=== PATIENT | female | born 1990 | race Two or more races ===

== ENCOUNTER 2023-10-23 12:10 | Day surgery (SDC) | payer OTHER ==
[2023-10-23 12:03] LABS: HEMATOCRIT 33.6 % (32.4-45.2); HEMOGLOBIN 11.4 GM/dL (10.7-15.3); MCH 30.8 pg (25.7-33.7); MCHC 33.9 g/dl (32.0-36.0); MEAN CELL VOLUME 90.9 fl (80-96); MEAN PLT VOLUME 8.5 fl (7.5-11.1); PLATELET COUNT 168 10^3/uL (134-434); RDW 14.2 % (11.6-15.6); WHITE BLOOD COUNT 3.6 K/mm3 (4.0-10.0)
[2023-10-23 12:04] LABS: INR 1.05 (0.83-1.09); PROTHROMBIN TIME (PATIENT) 12.2 SEC (9.7-13.0)
[2023-10-23 12:22] LABS: POTASSIUM 4.3 mmol/L (3.5-5.1)
[2023-10-23 12:24] LABS: ALBUMIN 3.7 g/dl (3.4-5.0); BLOOD UREA NITROGEN 10.1 mg/dL (7-18); CALCIUM 8.7 mg/dL (8.5-10.1)
[2023-10-23 12:27] LABS: CREATININE 0.6 mg/dL (0.55-1.3)
[2023-10-23 12:29] LABS: BILIRUBIN,TOTAL 0.2 mg/dL (0.2-1)
[2023-10-23 14:28] VITALS: BMI 26.4
[2023-10-23] MEDS ORDERED: PROMETHAZINE HCL 25 MG/1 ML VIAL IVPB PRN (15:35)
[2023-10-23] MEDS ORDERED: oxyCODONE HCL 5 MG TABLET PO PRN (15:35)
[2023-10-23] MEDS ORDERED: ONDANSETRON 4 MG/2 ML VIAL IVPUSH PRN (15:35)
[2023-10-23] MEDS ORDERED: LACTATED RINGERS SOLUTION 1,000 ML IV SCH (15:45)
[2023-10-23] MEDS ORDERED: PROPOFOL 20 ML ONE (15:52)
[2023-10-23] MEDS ORDERED: MIDAZOLAM HCL 2 MG/2 ML SINGLE DOSE VIAL ONE (15:52)
[2023-10-23] MEDS ORDERED: LIDOCAINE HCL/PF 2% SDV 5ML VIAL ONE (15:53)
[2023-10-23] MEDS ORDERED: ceFAZolin SODIUM 1 GM VIAL ONE (16:03)
[2023-10-23] MEDS ORDERED: SODIUM CHLORIDE 0.9% P/F 10 ML VIAL IJ ONE (16:03)
[2023-10-23] MEDS ORDERED: DEXAMETHASONE SOD PHOSPHATE 4 MG/1 ML VIAL ONE (16:04)
[2023-10-23] MEDS ORDERED: ONDANSETRON 4 MG/2 ML VIAL ONE (16:04)
[2023-10-23] MEDS: ceFAZolin SODIUM 1 GM VIAL IVPB ONE (16:08)
[2023-10-23] MEDS ORDERED: KETOROLAC TROMETHAMINE 30 MG/1 ML VIAL ONE (16:15)
[2023-10-23] MEDS ORDERED: OXYTOCIN 10 UNITS/ML VIAL ONE (16:19)
[2023-10-23] MEDS ORDERED: ACETAMINOPHEN 325 MG TABLET (FP) PO PRN (16:41)
[2023-10-23] MEDS ORDERED: IBUPROFEN 400 MG TABLET (FP) PO PRN (16:41)
[2023-10-23] MEDS: RHO(D) IMMUNE GLOBULIN 1,500 UNIT DISP.SYRIN IM ONE (17:21)
[2023-10-23 19:19] VITALS: RESP 16
[2023-10-23 19:46] VITALS: BP 100/65; PULSE 66; TEMP 98.8
== END 2023-10-23 19:50 | disposition home or self-care (01) ==
LOC: JASU-SURG 12:10
PROVIDERS: ATTEND Specialist
PROC: 10D17ZZ Extraction of Products of Conception, Retained, Via Natural or Artificial Opening (ICD-10-PCS; principal; 2023-10-23 15:00)
DX: O02.1 Missed abortion (principal); Z3A.10 10 weeks gestation of pregnancy
CPT/HCPCS: 36415; 80053; 85027; 85610; 85730; 86850; 86900; 86901; 88305-TC; 94760; 96372; J2790

== ENCOUNTER 2025-01-15 05:35 | Inpatient (IN) | payer OTHER ==
[2025-01-15] MEDS: ELECTROLYTE-148 SOLN 500 ML IV SCH (06:00)
[2025-01-15 06:09] VITALS: BMI 31.5
[2025-01-15] MEDS: ELECTROLYTE-148 SOLN 1,000 ML IV SCH (06:30)
[2025-01-15] MEDS: CITRIC ACID/SODIUM CITRATE 30 ML UNIT-DOSE CUP PO ONE (07:10)
[2025-01-15] MEDS ORDERED: FENTANYL CITRATE/PF 50 MCG/ML VIAL ONE (08:31)
[2025-01-15] MEDS ORDERED: morphine SULFATE/PF 1 MG/2 ML (2cc Syringe - QUVA) ONE (08:31)
[2025-01-15] MEDS ORDERED: PHENYLEPHRINE HCL 10 MG/1 ML SINGLE DOSE VIAL ONE (09:40)
[2025-01-15] MEDS ORDERED: KETOROLAC TROMETHAMINE 30 MG/1 ML VIAL ONE (09:40)
[2025-01-15] MEDS ORDERED: OXYTOCIN 10 UNITS/ML VIAL ONE (09:40)
[2025-01-15] MEDS ORDERED: ceFAZolin SODIUM 1 GM VIAL ONE (09:40)
[2025-01-15] MEDS ORDERED: ONDANSETRON 4 MG/2 ML VIAL ONE (09:40)
[2025-01-15] MEDS ORDERED: oxyCODONE HCL 5 MG TABLET PO PRN (10:01)
[2025-01-15] MEDS: ACETAMINOPHEN 1000 MG/100 ML BAG IVPB ONE (10:10)
[2025-01-15] MEDS: OXYTOCIN 20 UNITS in 0.9% NS 20 UNIT/1,000 ML INFUS.BAG IV SCH (10:10)
[2025-01-15] MEDS ORDERED: LACTATED RINGERS SOLUTION 1,000 ML IV SCH (10:15)
[2025-01-15 13:57] VITALS: RESP 18
[2025-01-15] MEDS: IBUPROFEN (CALDOLOR) 800 MG/200 ML PREMIX BAGS IVPB SCH (14:13)
[2025-01-15] MEDS: ACETAMINOPHEN 1000 MG/100 ML BAG IVPB SCH (14:27)
[2025-01-15] MEDS: ACETAMINOPHEN 325 MG TABLET (FP) PO SCH (14:27)
[2025-01-15] MEDS: CEFAZOLIN SODIUM 2 GM in DEXTROSE 5%-WATER 100 ML IVPB SCH (18:16)
[2025-01-15] MEDS: SENNOSIDES/DOCUSATE COMBO (SENNA PLUS) TABLET (UD) PO SCH (21:28)
[2025-01-16] MEDS: morphine SULFATE/PF 1 MG/2 ML (2cc Syringe - QUVA) IT ONE (00:46)
[2025-01-16 07:20] LABS: HEMATOCRIT 28.1 % (34.1-44.9); HEMOGLOBIN 9.1 g/dL (11.2-15.7); MCHC 32.4 g/dl (32.2-35.5); RDW 13.2 % (12.1-16.8)
[2025-01-16 07:22] LABS: ABSOLUTE IMMATURE GRANULOCYTES 0.07 x10^3/uL (0.0-0.031); BASOPHILS # 0.01 x10^3/uL (0.01-0.08); MEAN PLT VOLUME 11.7 fl (9.4-12.3); MONOCYTE # 0.77 x10^3/uL (0.24-0.86); MONOCYTE % 7.6 % (4.7-12.5); PLATELET COUNT 134 x10^3/uL (182-369)
[2025-01-16] MEDS: IBUPROFEN 600 MG TABLET (FP) PO PRN (09:02)
[2025-01-16] MEDS: ONDANSETRON 4 MG/2 ML VIAL IVPB PRN (10:11)
[2025-01-16] MEDS: SIMETHICONE 80 MG TAB.CHEW (FP) PO PRN (10:11)
[2025-01-16] MEDS: ACETAMINOPHEN 1000 MG/100 ML BAG IVPB ONE (11:56)
[2025-01-17] MEDS: BISACODYL 10 MG SUPP.RECT RC PRN (01:56)
[2025-01-17] MEDS: METOCLOPRAMIDE HCL INJECTION 10 MG/2 ML VIAL IVPB SCH (01:56)
[2025-01-17 07:11] LABS: ABSOLUTE IMMATURE GRANULOCYTES 0.09 x10^3/uL (0.0-0.031); BASOPHILS # 0.01 x10^3/uL (0.01-0.08); EOSINOPHIL % 0.1 % (0.7-5.8); EOSINOPHILS # 0.01 x10^3/uL (0.04-0.36); HEMATOCRIT 28.1 % (34.1-44.9); MEAN PLT VOLUME 11.4 fl (9.4-12.3); MONOCYTE # 0.59 x10^3/uL (0.24-0.86); MONOCYTE % 5.3 % (4.7-12.5); PLATELET COUNT 168 x10^3/uL (182-369); RDW 13.5 % (12.1-16.8)
[2025-01-18 08:10] VITALS: BP 130/84; PULSE 72; TEMP 98.4
[2025-01-18] MEDS: FERROUS SO4 325 MG TABLET (FP) PO SCH (08:43)
== END 2025-01-18 15:35 | disposition home or self-care (01) | DRG 540 ==
LOC: JLDR 05:35 → J3W 12:45
PROVIDERS: ADMIT Specialist; ATTEND Specialist
PROC: 10D00Z1 Extraction of Products of Conception, Low, Open Approach (ICD-10-PCS; principal; 2025-01-15)
DX: O34.29 Maternal care due to uterine scar from other previous surgery (principal); Z3A.39 39 weeks gestation of pregnancy; Z37.0 Single live birth
CPT/HCPCS: 36415; 74019-TC-FY; 80053; 85025; 85027; 85461; 85610; 85730; 86780; 86850; 86900; 86901; 87389; 88307-TC; 96372; J2790